=== PATIENT | male | born 1945 | race Caucasian/White ===

== ENCOUNTER 2018-05-02 07:31 | Day surgery (SDC) | payer OTHER ==
[2018-04-28 12:06] VITALS: BMI 18.8
[2018-05-02] MEDS ORDERED: TETRACAINE 0.5% OPHTH SOLN 2 ML BOTTLE ONE (09:40)
[2018-05-02] MEDS ORDERED: THROMBIN (BOVINE) 5,000 UNIT VIAL TP ONE (09:40)
[2018-05-02] MEDS ORDERED: POVIDONE-IODINE 5% OPHTHALMIC PREP 30 ML SOLUTION ONE (09:40)
[2018-05-02] MEDS ORDERED: BUPIVACAINE HCL/PF 0.5% (5MG/ML) 10 ML VIAL ONE (09:40)
[2018-05-02] MEDS ORDERED: ERYTHROMYCIN 0.5% OPHTHALMIC OINTMENT 3.5 GM TUBE ONE (09:40)
[2018-05-02] MEDS ORDERED: MIDAZOLAM HCL 2 MG/2 ML SINGLE DOSE VIAL ONE (09:56)
[2018-05-02] MEDS ORDERED: ONDANSETRON 4 MG/2 ML VIAL ONE (10:08)
[2018-05-02] MEDS ORDERED: ceFAZolin SODIUM 1 GM VIAL ONE (10:08)
[2018-05-02] MEDS ORDERED: DEXAMETHASONE SOD PHOSPHATE 4 MG/1 ML VIAL ONE (10:08)
[2018-05-02] MEDS ORDERED: POVIDONE-IODINE 5% OPHTHALMIC PREP 30 ML SOLUTION OU ONE (10:17)
[2018-05-02] MEDS ORDERED: ERYTHROMYCIN 0.5% OPHTHALMIC OINTMENT 3.5 GM TUBE OU ONE ×2 (10:26→11:17)
[2018-05-02] MEDS ORDERED: ONDANSETRON 4 MG/2 ML VIAL IVPUSH PRN (11:28)
[2018-05-02] MEDS ORDERED: ACETAMINOPHEN 325 MG TABLET (FP) PO ONE (11:29)
[2018-05-02] MEDS: oxyCODONE HCL 5 MG TABLET PO PRN ×2 (11:37→12:38)
[2018-05-02 12:37] VITALS: TEMP 97.8
[2018-05-02 13:25] VITALS: BP 132/74; PULSE 66
--- NOTE | 2018-05-02 13:54 | OP ---
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 PROCEDURE: 1. Lateral tarsal strip, right lower lid. 2. Medial lid fracture, right lower lid. 3. Lateral tarsal strip, left lower lid. 4. Medial lid fracture, left lower lid. SURGEON: Tyler Bassett MD ANESTHESIA: Local. COMPLICATIONS: None. ESTIMATED BLOOD LOSS: 3-5 mL DESCRIPTION OF OPERATIVE: Patient brought to the operating room, placed on the operating room table. Vital signs were monitored by Anesthesia. Tetracaine was placed in both eyes. Lateral canthal lines were marked, both lateral canthi, and also 4 mm below the punctum in preparation for lid rotation. A small amount of Versed was administered and fentanyl, and then a 50/50 mixture of 2% Xylocaine with 1:100,000 epinephrine and 0.5% Marcaine was injected subcutaneously at the lateral canthus down to periosteum, lateral third of the upper and lower lid and nasally in the nasal third of the lower lid subcutaneously and through the conjunctiva. This was performed bilaterally in similar fashion to provide adequate anesthesia. Patient was prepped and draped in usual sterile fashion, exposing both eyes, and the following procedures were performed bilaterally. Lateral canthal incision was made, carried down with a 15 blade to the periosteum. The inferior asaf of the lateral canthal tendon was from the orbital rim with sharp dissection. The lids were overlapped at the orbital rim, marked with a sterile marking pen, divided into an anterior and posterior lamella. The anterior lamella was excised, and the posterior lamella was denuded of epithelium posteriorly and superiorly and released from the retractors superiorly, creating a lateral tarsal strip. The lateral tarsal strips were reattached to the internal surface of the orbital rim at the appropriate position, joining the superior asaf and the lateral canthal tendon with a double-arm 5-0 Prolene suture, reinforced with two 6-0 Vicryl lasso sutures. These were not tied at this point. The medial lid incision was made with an 11 blade, and then, this was carried down through the middle layer of the eyelid with a Sunflower needle. The conjunctiva was opened with a Sunflower needle, and a Olimpia was used to create a full-thickness lid bridge. A double-arm 5-0 chromic was then passed through the superior tarsal conjunctiva in a mattress fashion, straddling the punctum. Then, it was passed through the lid bridge in double-arm fashion and then passed through the inferior skin muscle flap, rotating the medial portion of the lid internally as this area was short of the anterior lamella and had some cicatricial changes. The lateral canthal angle was reformed with 5-0 chromic buried through the hayes line of the upper and lower lid. The Prolenes were then tied, attaching the tarsal strips to the orbital rims. The excess tarsal strip was overlapped over the Prolene tie with a 5-0 chromic. Antibiotic irrigation was used throughout the case. Cautery was used for hemostasis when necessary. The lateral canthal incision was closed with subcuticular 5-0 chromic suture and then with interrupted or running 6-0 plain suture. The nasal inverting sutures were then tied, inverting the nasal third of the eyelids, and the skin was closed with two interrupted 6-0 plain sutures nasally. Erythromycin ointment was placed in the eye and on the lateral canthal sutures and the nasal sutures, and the patient was taken to the recovery room in stable condition. TYLER BASSETT M.D. [id number]
== END 2018-05-02 13:15 ==
LOC: FASU 07:31
PROVIDERS: ATTEND Ophthalmology
PROC: 08SQ0ZZ Reposition Right Lower Eyelid, Open Approach (ICD-10-PCS; 2018-05-02)
PROC: 08SR0ZZ Reposition Left Lower Eyelid, Open Approach (ICD-10-PCS; principal; 2018-05-02 10:23)
DX: H02.112 Cicatricial ectropion of right lower eyelid (principal); H02.115 Cicatricial ectropion of left lower eyelid
CPT/HCPCS: 94760